=== PATIENT | male | born 1970 | race African-American/Black ===

== ENCOUNTER 2016-06-08 10:11 | Inpatient (IN) | payer OTHER ==
[2016-06-08 10:47] VITALS: BMI 19.5
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
[2016-06-08] MEDS ORDERED: P-EPHED 60MG/TRIPROLIDI 2.5MG TABLET PO PRN (13:51)
[2016-06-08] MEDS ORDERED: IBUPROFEN 400 MG TABLET (FP) PO PRN (13:51)
[2016-06-08] MEDS ORDERED: ACETAMINOPHEN 325 MG TABLET (FP) PO PRN (13:51)
[2016-06-08] MEDS ORDERED: guaiFENesin/D-METHORPHAN HB 10 ML UNIT-DOSE CUPS PO PRN (13:51)
[2016-06-08] MEDS ORDERED: diphenhydrAMINE HCL 50 MG CAPSULE PO PRN (13:51)
[2016-06-08] MEDS ORDERED: LOPERAMIDE HCL 2 MG CAPSULE PO PRN (13:51)
[2016-06-08] MEDS ORDERED: MAGNESIUM CITRATE 300 ML BOTTLE PO PRN (13:51)
[2016-06-08] MEDS ORDERED: MAGNESIUM HYDROX 2400MG/30ML ORAL SUSPENSION 30 ML CUP PO PRN (13:51)
[2016-06-08] MEDS ORDERED: MENTHOL/PHENOL 1 EACH UD MM PRN (13:51)
[2016-06-08] MEDS ORDERED: MAG HYDROX/AL HYDROX/SIMETH 30 ML UNIT-DOSE CUP PO PRN (13:51)
--- NOTE | 2016-06-08 14:39 | HP ---
Psychiatrist Admission - Data Date of interview: 06/08/16 Admission source: [facility] Identifying data: This the third [facility] admission for this 45 years old single Black male, father of 5 children, unemployed on public assistance, living in a room Medical History: Significant for Bronchitis, PPD+ and surgery for fracture left mandible in 2004. Smokes 2 cigarettes daily Psychiatric History: Denies history of previous psychiatric treatment Physical/Sexual Abuse/Trauma History: Denies history of emotional, physical or sexual abuse as well as DV relationship Additional Comment: Reports history of multiple misdemeanor arrests. Denies being on probation at present Vital Signs: Vital Signs - 24 hr 06/08/16 10:39 Temperature 97.8 F Pulse Rate 92 H Respiratory 20 Rate Blood Pressure 117/84 Allergies/Adverse Reactions: Allergies Allergy/AdvReac Type Severity Reaction Status Date / Time No Known Allergies Allergy Verified 06/08/16 11:04 Date of last physical exam: 06/08/16 Concur with the findings of this exam: Yes - Substance Abuse/Tx History Hx Alcohol Use: Yes Hx Substance Use: Yes Substance Use Type: Alcohol (Started drinking alcohol at age 12, consumes half a pint daily. Last drink on 06/08/16), Marijuana (Started smoking marijuana at age 12, consumes one bag daily. Last smoked on 06/08/16) Hx Substance Use Treatment: Yes (2 previous inpt rehab @ [facility] in) - Admission Criteria Previous failed treatment: No Poor recovery environment: Yes Comorbidities: Yes Lacks judgement: Yes Mental Status Exam - Mental Status Exam Alert and Oriented to: Time, Place, Person Cognitive Function: Fair, Good Patient Appearance: Disheveled Mood: Hopeful, Euthymic Affect: Appropriate Patient Behavior: Cooperative Speech Pattern: Clear Voice Loudness: Normal Thought Process: Intact Thought Disorder: Not Present Hallucinations: Denies Suicidal Ideation: Denies Homicidal Ideation: Denies Insight/Judgement: Fair Sleep: Well Appetite: Good Muscle strength/Tone: Normal Gait/Station: Normal Psychiatric Findings - Problem List ([place] 1, 2,3) (1) Alcohol dependence with uncomplicated withdrawal Current Visit: Yes Status: Chronic (2) Cannabis dependence, uncomplicated Current Visit: Yes Status: Chronic (3) Nicotine dependence Current Visit: Yes Status: Acute (4) Finger fracture, right Current Visit: Yes Status: Acute Comment: CAST IN PLACE ON RIGHT FOREARM (5) PPD positive Current Visit: Yes Status: Acute - Initial Treatment Plan Initial Treatment Plan: Monitor progress
[2016-06-08 18:02] LABS: MCH 33.6 pg (25.7-33.7); MCHC 34.5 g/dl (32.0-35.9); MEAN CELL VOLUME 97.3 fl (80-96); PLATELET COUNT 72 K/MM3 (134-434); RDW 12.8 % (11.9-15.9); WHITE BLOOD COUNT 4.4 K/mm3 (4.0-10.0)
[2016-06-08 18:16] LABS: ALBUMIN 4.5 g/dl (3.4-5.0); ANION GAP 8 (8-16); CALCIUM 8.7 mg/dL (8.5-10.1); CO2 28 mmol/L (21-32); COCKROFT - GAULT 68.9; GLUCOSE,RANDOM 91 mg/dL (74-106); SGOT/AST 44 U/L (15-37); SGPT/ALT 67 U/L (12-78)
[2016-06-08 18:17] LABS: ALK PHOS 80 U/L (45-117); BILIRUBIN,TOTAL 2.8 mg/dL (0.2-1.0); TOT PROT 7.6 g/dl (6.4-8.2)
[2016-06-08 19:43] LABS: PLATELET ESTIMATE MOD DECREASED (NORMAL)
[2016-06-08 22:08] LABS: URINE APPEARANCE SLCLOUDY; URINE BILIRUBIN NEGATIVE (NEGATIVE); URINE BLOOD NEGATIVE (NEGATIVE); URINE COLOR YELLOW; URINE GLUCOSE (UA) NEGATIVE (NEGATIVE); URINE KETONE NEGATIVE (NEGATIVE); URINE LEUK ESTERASE NEGATIVE (NEGATIVE); URINE NITRITE NEGATIVE (NEGATIVE); URINE PROTEIN NEGATIVE (NEGATIVE); URINE UROBILINOGEN 4.0 E.U/dl E.U./dl (0.2-1.0)
[2016-06-08] MEDS: THIAMINE HCL 100 MG TABLET (FP) PO SCH (23:27)
[2016-06-09] MEDS: PRENATAL VITAMINS W/ FOLIC ACID TABLET (FP) PO SCH (10:03)
--- NOTE | 2016-06-09 13:23 | EKG ---
Test Reason : Blood Pressure : / mmHG Vent. Rate : 090 BPM Atrial Rate : 090 BPM P-R Int : 174 ms QRS Dur : 088 ms QT Int : 350 ms P-R-T Axes : 081 076 071 degrees QTc Int : 428 ms NORMAL SINUS RHYTHM WITH SINUS ARRHYTHMIA NORMAL ECG NO PREVIOUS ECGS AVAILABLE Confirmed by JESUS AMAYA, PATRICK ([id number]) on 06/09/2016 1:22:33 PM Referred By: Jia Morejon Confirmed By:PATRICK LEE MD
[2016-06-09] MEDS: THIAMINE HCL 100 MG TABLET (FP) PO SCH (23:27)
[2016-06-10] MEDS: POTASSIUM CHLORIDE TABS 20 MEQ TABLET.ER (FP) PO SCH (10:15)
[2016-06-10] MEDS: PRENATAL VITAMINS W/ FOLIC ACID TABLET (FP) PO SCH (10:15)
[2016-06-10 10:42] LABS: CALCIUM 9.1 mg/dL (8.5-10.1); COCKROFT - GAULT 62.6; CREATININE 1.1 mg/dL (0.7-1.3)
[2016-06-10] MEDS: THIAMINE HCL 100 MG TABLET (FP) PO SCH (23:07)
[2016-06-11] MEDS: PRENATAL VITAMINS W/ FOLIC ACID TABLET (FP) PO SCH (10:29)
[2016-06-11] MEDS: POTASSIUM CHLORIDE TABS 20 MEQ TABLET.ER (FP) PO SCH (10:29)
[2016-06-11] MEDS: THIAMINE HCL 100 MG TABLET (FP) PO SCH (23:47)
[2016-06-12] MEDS: PRENATAL VITAMINS W/ FOLIC ACID TABLET (FP) PO SCH (10:41)
[2016-06-12] MEDS: POTASSIUM CHLORIDE TABS 20 MEQ TABLET.ER (FP) PO SCH (10:41)
[2016-06-12] MEDS: NICOTINE POLACRILEX 2 MG GUM BUC PRN (10:53)
[2016-06-12] MEDS: THIAMINE HCL 100 MG TABLET (FP) PO SCH (22:54)
[2016-06-13] MEDS: POTASSIUM CHLORIDE TABS 20 MEQ TABLET.ER (FP) PO SCH (10:45)
[2016-06-13] MEDS: PRENATAL VITAMINS W/ FOLIC ACID TABLET (FP) PO SCH (10:48)
[2016-06-13] MEDS: THIAMINE HCL 100 MG TABLET (FP) PO SCH (23:08)
[2016-06-14] MEDS: PRENATAL VITAMINS W/ FOLIC ACID TABLET (FP) PO SCH (10:35)
[2016-06-14] MEDS: POTASSIUM CHLORIDE TABS 20 MEQ TABLET.ER (FP) PO SCH (10:35)
[2016-06-14] MEDS: THIAMINE HCL 100 MG TABLET (FP) PO SCH (22:26)
[2016-06-15] MEDS: POTASSIUM CHLORIDE TABS 20 MEQ TABLET.ER (FP) PO SCH (10:39)
[2016-06-15] MEDS: PRENATAL VITAMINS W/ FOLIC ACID TABLET (FP) PO SCH (10:39)
[2016-06-15] MEDS: NICOTINE POLACRILEX 2 MG GUM BUC PRN (10:49)
[2016-06-15] MEDS ORDERED: PT OWN MED DRAWER 7, Y5N ONE (15:21)
[2016-06-15] MEDS: THIAMINE HCL 100 MG TABLET (FP) PO SCH (23:50)
[2016-06-16] MEDS: PRENATAL VITAMINS W/ FOLIC ACID TABLET (FP) PO SCH (10:13)
[2016-06-16] MEDS: POTASSIUM CHLORIDE TABS 20 MEQ TABLET.ER (FP) PO SCH (10:13)
[2016-06-16] MEDS: NICOTINE POLACRILEX 2 MG GUM BUC PRN (11:00)
[2016-06-16] MEDS: THIAMINE HCL 100 MG TABLET (FP) PO SCH (22:00)
[2016-06-17] MEDS: PRENATAL VITAMINS W/ FOLIC ACID TABLET (FP) PO SCH (10:20)
[2016-06-17] MEDS: POTASSIUM CHLORIDE TABS 20 MEQ TABLET.ER (FP) PO SCH (10:20)
[2016-06-17] MEDS: THIAMINE HCL 100 MG TABLET (FP) PO SCH (22:07)
[2016-06-18] MEDS: PRENATAL VITAMINS W/ FOLIC ACID TABLET (FP) PO SCH (11:00)
[2016-06-18] MEDS: POTASSIUM CHLORIDE TABS 20 MEQ TABLET.ER (FP) PO SCH (11:00)
[2016-06-18] MEDS: NICOTINE POLACRILEX 2 MG GUM BUC PRN (21:43)
[2016-06-18] MEDS: THIAMINE HCL 100 MG TABLET (FP) PO SCH (23:47)
[2016-06-19] MEDS: POTASSIUM CHLORIDE TABS 20 MEQ TABLET.ER (FP) PO SCH (10:37)
[2016-06-19] MEDS: PRENATAL VITAMINS W/ FOLIC ACID TABLET (FP) PO SCH (10:37)
[2016-06-19] MEDS: NICOTINE POLACRILEX 2 MG GUM BUC PRN (13:10)
[2016-06-19] MEDS: THIAMINE HCL 100 MG TABLET (FP) PO SCH (22:43)
[2016-06-20] MEDS: PRENATAL VITAMINS W/ FOLIC ACID TABLET (FP) PO SCH (10:37)
[2016-06-20] MEDS: POTASSIUM CHLORIDE TABS 20 MEQ TABLET.ER (FP) PO SCH (10:37)
[2016-06-20] MEDS: THIAMINE HCL 100 MG TABLET (FP) PO SCH (22:12)
[2016-06-21] MEDS: PRENATAL VITAMINS W/ FOLIC ACID TABLET (FP) PO SCH (10:25)
[2016-06-21] MEDS: POTASSIUM CHLORIDE TABS 20 MEQ TABLET.ER (FP) PO SCH (10:25)
[2016-06-21] MEDS: NICOTINE POLACRILEX 2 MG GUM BUC PRN (13:59)
[2016-06-21] MEDS: THIAMINE HCL 100 MG TABLET (FP) PO SCH (23:37)
[2016-06-22 06:56] VITALS: BP 98/70; PULSE 74; TEMP 98.4
--- NOTE | 2016-06-22 09:00 | PN ---
Psychiatric Progress Note Vital Signs: Vital Signs Period Temp Pulse Resp BP Sys/Lopez Pulse Ox Last 24 Hr 98.4 F 74 18-18 98/70 Date of Session: 06/22/16 Chief Complaint:: Discharge Note HPI: Patient addressing Alcohol and Cannabis Dependence comorbid with Nicotine Dependence ROS: PPD+ Current Medications: Active Medications Generic Name Dose Route Start Last Admin Trade Name Freq PRN Reason Stop Dose Admin Acetaminophen 650 mg 06/08/16 13:51 06/13/16 11:58 Tylenol - PO 650 mg Q4H PRN Administration FEVER OR PAIN Al Hydroxide/Mg Hydroxide 30 ml 06/08/16 13:51 Mylanta Oral Suspension - PO Q6H PRN DYSPEPSIA Diphenhydramine HCl 50 mg 06/08/16 13:51 Benadryl - PO HSMR1 PRN FOR ITCHING Eucalyptus/Menthol/Phenol/Sorbitol 1 each 06/08/16 13:51 Cepastat Lozenge - MM Q4H PRN SORE THROAT Guaifenesin 10 ml 06/08/16 13:51 Robitussin Dm - PO Q6H PRN COUGH Ibuprofen 400 mg 06/08/16 13:51 06/21/16 11:12 Motrin - PO 400 mg Q6H PRN Administration PAIN Loperamide HCl 4 mg 06/08/16 13:51 Imodium - PO Q6H PRN DIARRHEA Magnesium Hydroxide 30 ml 06/08/16 13:51 Milk Of Magnesia - PO DAILY PRN CONSTIPATION Nicotine Polacrilex 2 mg 06/12/16 09:57 06/21/16 13:59 Nicorette Gum - BUC 2 mg Q2H PRN Administration NICOTINE REPLACEMENT RX Potassium Chloride 40 meq 06/10/16 10:00 06/21/16 10:25 K-Dur - PO 40 meq DAILY CRISTHIAN Administration Multivit/Folic Acid/Iron 1 tab 06/09/16 10:00 06/21/16 10:25 Vitamins (Sjr) - PO 1 tab DAILY CRISTHIAN Administration Pseudoephedrine/Triprolidine 1 combo 06/08/16 13:51 Actifed - PO TID PRN NASAL CONGESTION Thiamine HCl 100 mg 06/08/16 22:00 06/21/16 23:37 Vitamin B1 - PO Not Given HS [facility] Current Side Effect: No Lab tests ordered: Yes Lab tests reviewed: Yes Provider note:: Patient has completed this program today. He has met his treatment goals and will continue to address his issues in outpatient treatment at [facility]. He verbalized undrestanding of the negative consequences of his addiction and the need to make changes in his life style in order to maintain sobriety. He is stable for discharge today Total face to face time:: 35 Mental Status Exam - Mental Status Exam Alert and Oriented to: Time, Place, Person Cognitive Function: Fair Patient Appearance: Disheveled Mood: Hopeful, Euthymic Affect: Appropriate Patient Behavior: Cooperative Speech Pattern: Clear Voice Loudness: Normal Thought Process: Intact, Goal Oriented Thought Disorder: Not Present Hallucinations: Denies Suicidal Ideation: Denies Homicidal Ideation: Denies Insight/Judgement: Fair Sleep: Fair Appetite: Good Muscle strength/Tone: Normal Gait/Station: Normal Psychiatric Treatment Plan - Problem List (1) Alcohol dependence with uncomplicated withdrawal Current Visit: Yes (2) Cannabis dependence, uncomplicated Current Visit: Yes (3) Nicotine dependence Current Visit: Yes (4) Finger fracture, right Current Visit: Yes Comment: CAST IN PLACE ON RIGHT FOREARM (5) PPD positive Current Visit: Yes Initial treatment plan: Patient is discharged today and referred to [facility] for outpatient treatment
--- NOTE | 2016-06-22 09:47 | PN ---
[facility] Progress Note Note: ADDENDUM K IS 4.4 LAST REPEAT WILL D/C K DUR
[2016-06-22] MEDS: PRENATAL VITAMINS W/ FOLIC ACID TABLET (FP) PO SCH (10:42)
== END 2016-06-22 10:36 | disposition home or self-care (01) | DRG 772 ==
LOC: YASAS 10:11 → Y3W 11:26
PROVIDERS: ADMIT Psychiatry & Neurology Psychiatry; ATTEND Psychiatry & Neurology Psychiatry
PROC: HZ42ZZZ Group Counseling for Substance Abuse Treatment, Cognitive-Behavioral (ICD-10-PCS; principal; 2016-06-22)
DX: F10.230 Alcohol dependence with withdrawal, uncomplicated (principal); F14.20 Cocaine dependence, uncomplicated; F12.20 Cannabis dependence, uncomplicated; Z87.81 Personal history of (healed) traumatic fracture
CPT/HCPCS: 36415; 71020-TC; 80048; 80053; 81003; 85027; 86593; 93005; 93010

== ENCOUNTER 2016-11-19 10:55 | Inpatient (IN) | payer OTHER ==
[2016-11-19 13:14] VITALS: BMI 21.3
--- NOTE | 2016-11-19 16:21 | HP ---
CIWA Score - CIWA Score Nausea/Vomitin-Mild Nausea/No Vomiting Muscle Tremors: 4-Moderate,w/Arms Extend Anxiety: 4-Mod. Anxious/Guarded Agitation: 4-Moderately Restless Paroxysmal Sweats: 1-Minimal Palms Moist Orientation: 0-Oriented Tacttile Disturbances: 0-None Auditory Disturbances: 0-None Visual Disturbances: 0-None Headache: 1-Very Mild CIWA-Ar Total Score: 15 Admission ROS BHS - HPI Chief Complaint: withdrawal sx Allergies/Adverse Reactions: Allergies Allergy/AdvReac Type Severity Reaction Status Date / Time No Known Allergies Allergy Verified 11/19/16 15:48 History of Present Illness: 46 years old male with long history of alcohol cocaine marijuana nicotine dependence has positive ppd, weight loss, denies mental illness is admitted to detox Exam Limitations: No Limitations - Ebola screening Have you traveled outside of the country in the last 21 days: No Have you had contact with anyone from an Ebola affected area: No Have you been sick,other than usual withdrawal symptoms: No Do you have a fever: No - Review of Systems Constitutional: Loss of Appetite, Changes in sleep, Unintentional Wgt. 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) Integumentary: reports: Change in Color (multiple hypopigmentation on hands and legs) Neuro: reports: Tremors Endocrine: reports: No Symptoms Reported Hematology: reports: No Symptoms Reported Psychiatric: reports: Judgement Intact, Mood/Affect Appropiate, Orientated x3 Other Systems: Reviewed and Negative Patient History - Patient Medical History Hx Anemia: No Hx Asthma: No Hx Chronic Obstructive Pulmonary Disease (COPD): No Hx Cancer: No Hx Cardiac Disorders: No Hx Congestive Heart Failure: No Hx Hypertension: No Hx Hypercholesterolemia: No Hx Pacemaker: No HX Cerebrovascular Accident: No Hx Seizures: No Hx Dementia: No Hx Diabetes: No Hx Gastrointestinal Disorders: No Hx Liver Disease: No (Need labs to determine if Hep C infection exists) Hx Genitourinary Disorders: No Hx Sexually Transmitted Disorders: No Hx Renal Disease (ESRD): No Hx Thyroid Disease: No Hx Human Immunodeficiency Virus (HIV): No (NEGATIVE HX) Hx Hepatitis C: No Hx Depression: No Hx Suicide Attempt: No Hx Bipolar Disorder: No Hx Schizophrenia: No - Patient Surgical History Past Surgical History: Yes Hx Neurologic Surgery: No Hx Cataract Extraction: No Hx Cardiac Surgery: No Hx Lung Surgery: No Hx Breast Surgery: No Hx Breast Biopsy: No Hx Abdominal Surgery: No Hx Appendectomy: No Hx Cholecystectomy: No Hx Genitourinary Surgery: No Hx Orthopedic Surgery: Yes (right 4th finger distal amputee) Other Surgical History: LT MANDIBLE FX--PLATE IN PLACE 2014 Anesthesia Reaction: No - PPD History Previous Implant?: Yes Documented Results: Positive w/o proof Implanted On Prior R Admission?: No Results: CXR(-)06/09/2016 PPD to be Administered?: No - Smoking Cessation Smoking history: Current every day smoker Have you smoked in the past 12 months: Yes Aproximately how many cigarettes per day: 2 Cigars Per Day: 0 Hx Chewing Tobacco Use: No Initiated information on smoking cessation: Yes 'Breaking Loose' booklet given: 11/19/16 - Substance & Tx. History Hx Alcohol Use: Yes Hx Substance Use: Yes Substance Use Type: Alcohol, Cocaine, Marijuana Hx Substance Use Treatment: Yes (06/08-06/22/16 [facility] - Substances Abused Alcohol-vodka/beer Route: Oral Frequency: Daily Amount used: 1 pt volka./1-6 pk.18oz Age of first use: 14 Date of Last Use: 11/18/16 Marijuana Route: Smoking Frequency: Daily Amount used: $20 Age of first use: 14 Date of Last Use: 11/18/16 Family Disease History - Family Disease History Family Disease History: Diabetes: Father (), Other: Mother (SEIZURES/ ALCOHOLISM-), Sister (alcoholic) Admission Physical Exam BHS - Vital Signs Vital Signs: Vital Signs - 24 hr 11/19/16 13:04 Temperature 96.2 F L Pulse Rate 66 Respiratory 16 Rate Blood Pressure 126/79 - Physical General Appearance: Yes: Appropriately Dressed, Mild Distress, Thin, Tremorous, Irritable, Sweating, Anxious HEENTM: Yes: Hearing grossly Normal, Normal ENT Inspection, Normocephalic, Normal Voice Respiratory: Yes: Chest Non-Tender, Lungs Clear, Normal Breath Sounds, No Respiratory Distress, No Accessory Muscle Use Neck: Yes: Supple, Trachea in good position Breast: Yes: Within Normal Limits, Breasts Symetrical, No Discharge Cardiology: Yes: Regular Rhythm, Regular Rate, S1, S2 Abdominal: Yes: Normal Bowel Sounds, Non Tender, Soft Genitourinary: Yes: Within Normal Limits Back: Yes: Normal Inspection Musculoskeletal: Yes: full range of Motion, Gait Steady Extremities: Yes: Normal Range of Motion, Non-Tender, Tremors, Other (hands + legs hypopigmentation spots right 4th distal finger amputee) Neurological: Yes: Fully Oriented, Alert, Motor Strength 5/5, Normal Mood/Affect , Normal Response Integumentary: Yes: Warm, Other (multiple hypopigmentation on hands and legs) Lymphatic: Yes: Within Normal Limits - Diagnostic (1) Nicotine dependence Current Visit: Yes Status: Acute Qualifiers: Nicotine product type: cigarettes Substance use status: in withdrawal Qualified Code(s): F17.213 - Nicotine dependence, cigarettes, with withdrawal; F17.213 - Nicotine dependence, cigarettes, with withdrawal (2) PPD positive Current Visit: Yes Status: Resolved (3) Alcohol dependence with uncomplicated withdrawal Current Visit: Yes Status: Acute (4) Cannabis dependence, uncomplicated Current Visit: Yes Status: Chronic (5) Cocaine dependence, uncomplicated Current Visit: Yes Status: Chronic Cleared for Admission [facility] - Detox or Rehab [facility] Level of Care: Medically Managed Detox Regimen/Protocol: Librium [facility] Breath Alcohol Content Breath Alcohol Content: 0 Urine Drug Screen - Results Drug Screen Negative: No Urine Drug Screen Results: THC-Marijuana, CRUZ-Cocaine
[2016-11-19] MEDS ORDERED: MAG HYDROX/AL HYDROX/SIMETH 30 ML UNIT-DOSE CUP PO PRN (16:24)
[2016-11-19] MEDS ORDERED: guaiFENesin/D-METHORPHAN HB 10 ML UNIT-DOSE CUPS PO PRN (16:24)
[2016-11-19] MEDS ORDERED: chlordiazePOXIDE HCL 25 MG CAPSULE PO PRN (16:24)
[2016-11-19] MEDS ORDERED: P-EPHED 60MG/TRIPROLIDI 2.5MG TABLET PO PRN (16:24)
[2016-11-19] MEDS ORDERED: ACETAMINOPHEN 325 MG TABLET (FP) PO PRN (16:24)
[2016-11-19] MEDS ORDERED: LOPERAMIDE HCL 2 MG CAPSULE PO PRN (16:24)
[2016-11-19] MEDS ORDERED: IBUPROFEN 400 MG TABLET (FP) PO PRN (16:24)
[2016-11-19] MEDS ORDERED: MAGNESIUM HYDROX 2400MG/30ML ORAL SUSPENSION 30 ML CUP PO PRN (16:24)
[2016-11-19] MEDS ORDERED: MENTHOL/PHENOL 1 EACH UD MM PRN (16:24)
[2016-11-19] MEDS ORDERED: MAGNESIUM CITRATE 300 ML BOTTLE PO PRN (16:24)
[2016-11-19 20:29] LABS: URINE APPEARANCE SLCLOUDY; URINE BILIRUBIN NEGATIVE (NEGATIVE); URINE BLOOD NEGATIVE (NEGATIVE); URINE COLOR AMBER; URINE GLUCOSE (UA) NEGATIVE (NEGATIVE); URINE KETONE NEGATIVE (NEGATIVE); URINE NITRITE NEGATIVE (NEGATIVE); URINE PROTEIN NEGATIVE (NEGATIVE); URINE UROBILINOGEN 4.0 E.U/dl mg/dL (0.2-1.0)
[2016-11-19 21:46] LABS: URINE LEUK ESTERASE Negative (NEGATIVE)
[2016-11-19] MEDS: THIAMINE HCL 100 MG TABLET (FP) PO SCH (22:09)
[2016-11-19] MEDS: chlordiazePOXIDE HCL 25 MG CAPSULE PO SCH (22:09)
[2016-11-20] MEDS: chlordiazePOXIDE HCL 25 MG CAPSULE PO SCH ×4 (05:49→22:18)
[2016-11-20] MEDS: PRENATAL VITAMINS W/ FOLIC ACID TABLET (FP) PO SCH (10:18)
[2016-11-20] MEDS: NICOTINE 14 MG/24 HOURS TOPICAL PATCH TD SCH (10:19)
[2016-11-20] MEDS: NICOTINE POLACRILEX 2 MG GUM BC PRN ×2 (10:21→18:24)
[2016-11-20 11:05] LABS: MCH 33.2 pg (25.7-33.7); MCHC 33.5 g/dl (32.0-35.9); MEAN CELL VOLUME 99.1 fl (80-96); MEAN PLT VOLUME 10.4 fl (7.5-11.1); PLATELET COUNT 65 K/MM3 (134-434); RDW 12.9 % (11.9-15.9); WHITE BLOOD COUNT 2.3 K/mm3 (4.0-10.0)
[2016-11-20 11:18] LABS: ALBUMIN 3.9 g/dl (3.4-5.0); ALK PHOS 82 U/L (45-117); ANION GAP 7 (8-16); BILIRUBIN,TOTAL 2.1 mg/dL (0.2-1.0); CALCIUM 8.2 mg/dL (8.5-10.1); CO2 29 mmol/L (21-32); CREATININE 0.8 mg/dL (0.7-1.3); GLUCOSE,RANDOM 70 mg/dL (74-106); SGOT/AST 53 U/L (15-37); SGPT/ALT 58 U/L (12-78)
[2016-11-20] MEDS ORDERED: FLU VACCINE QUAD 60 MCG/0.5 ML (MDV 17-18) IM ONE ×4 (12:00→15:30)
--- NOTE | 2016-11-20 12:53 | EKG ---
Test Reason : Blood Pressure : / mmHG Vent. Rate : 070 BPM Atrial Rate : 070 BPM P-R Int : 178 ms QRS Dur : 088 ms QT Int : 376 ms P-R-T Axes : 070 080 074 degrees QTc Int : 406 ms NORMAL SINUS RHYTHM MODERATE VOLTAGE CRITERIA FOR LVH, MAY BE NORMAL VARIANT WHEN COMPARED WITH ECG OF 08-JUN-2016 14:30, NO SIGNIFICANT CHANGE WAS FOUND Confirmed by EYAD HAMMOND MD ([id number]) on 11/20/2016 12:52:58 PM Referred By: Confirmed By:EYAD HAMMOND MD
--- NOTE | 2016-11-20 16:57 | PN ---
S CIWA - CIWA Score Nausea/Vomitin Muscle Tremors: 3 Anxiety: 4-Mod. Anxious/Guarded Agitation: 3 Paroxysmal Sweats: No Perspiration Orientation: 0-Oriented Tacttile Disturbances: 2-Mild Itch/Numbness/Burn Auditory Disturbances: 1-Very Mild Visual Disturbances: 3-Moderate Sensitivity Headache: 0-None Present CIWA-Ar Total Score: 19 BHS Progress Note (SOAP) Subjective: Nausea, Tremors, Diarrhea. Objective: PT. A & O X 3, OBSERVED AMBULATING ON UNIT. NO ACUTE DISTRESS. 11/20/16 16:54 Vital Signs Temperature 98.7 F 11/20/16 13:56 Pulse Rate 77 11/20/16 13:56 Respiratory Rate 16 11/20/16 13:56 Blood Pressure 112/58 11/20/16 13:56 O2 Sat by Pulse Oximetry (%) Laboratory Tests 11/19/16 11/20/16 11/20/16 19:00 08:00 08:00 WBC 2.3 L D RBC 4.60 Hgb 15.3 Hct 45.6 MCV 99.1 H MCH 33.2 MCHC 33.5 RDW 12.9 Plt Count 65 L MPV 10.4 Sodium 141 Potassium 4.1 Chloride 105 Carbon Dioxide 29 Anion Gap 7 L BUN 10 D Creatinine 0.8 D Creat Clearance w eGFR > 60 Random Glucose 70 L Calcium 8.2 L Total Bilirubin 2.1 H D AST 53 H D ALT 58 Alkaline Phosphatase 82 Total Protein 7.0 Albumin 3.9 Urine Color Sasha Urine Appearance Slcloudy Urine pH 6.0 Ur Specific Meta 1.020 Urine Protein Negative Urine Glucose (UA) Negative Urine Ketones Negative Urine Blood Negative Urine Nitrite Negative Urine Bilirubin Negative Urine Urobilinogen 4.0 e.u/dl Ur Leukocyte Esterase Negative RPR Titer 11/20/16 08:00 WBC RBC Hgb Hct MCV MCH MCHC RDW Plt Count MPV Sodium Potassium Chloride Carbon Dioxide Anion Gap BUN Creatinine Creat Clearance w eGFR Random Glucose Calcium Total Bilirubin AST ALT Alkaline Phosphatase Total Protein Albumin Urine Color Urine Appearance Urine pH Ur Specific Meta Urine Protein Urine Glucose (UA) Urine Ketones Urine Blood Urine Nitrite Urine Bilirubin Urine Urobilinogen Ur Leukocyte Esterase RPR Titer Nonreactive LABS NOTED. PT. HAS HAD LOW WBC AND PLATELET LEVELS WHEN CHECKED PREVIOUSLY. 11/20/16 16:56 Assessment: 11/20/16 16:54 WITHDRAWAL SYMPTOMS. Plan: CONTINUE DETOX. REPEAT CBC ON . INCREASE DAILY PO FLUID INTAKE.
[2016-11-20] MEDS: THIAMINE HCL 100 MG TABLET (FP) PO SCH (22:17)
[2016-11-20] MEDS: diphenhydrAMINE HCL 50 MG CAPSULE PO PRN (22:18)
[2016-11-21] MEDS: chlordiazePOXIDE HCL 25 MG CAPSULE PO SCH ×3 (05:27→17:36)
[2016-11-21] MEDS: NICOTINE 14 MG/24 HOURS TOPICAL PATCH TD SCH (10:08)
[2016-11-21] MEDS: PRENATAL VITAMINS W/ FOLIC ACID TABLET (FP) PO SCH (10:08)
[2016-11-21] MEDS: NICOTINE POLACRILEX 2 MG GUM BC PRN (10:09)
--- NOTE | 2016-11-21 13:24 | PN ---
[facility] CIWA - CIWA Score Nausea/Vomitin-No Nausea/No Vomiting Muscle Tremors: 4-Moderate,w/Arms Extend Anxiety: 4-Mod. Anxious/Guarded Agitation: 4-Moderately Restless Paroxysmal Sweats: 1-Minimal Palms Moist Orientation: 0-Oriented Tacttile Disturbances: 3-Moderate Itch/Numb/Burn Auditory Disturbances: 0-None Visual Disturbances: 0-None Headache: 0-None Present CIWA-Ar Total Score: 16 S Progress Note (SOAP) Subjective: ANXIETY,SWEATS,TREMORS,FATIGUE. Objective: 11/21/16 13:24 Vital Signs Temperature 98.4 F 11/21/16 10:04 Pulse Rate 88 11/21/16 10:04 Respiratory Rate 20 11/21/16 10:04 Blood Pressure 110/78 11/21/16 10:04 O2 Sat by Pulse Oximetry (%) Laboratory Last Values WBC 2.3 K/mm3 (4.0-10.0) L D 11/20/16 08:00 RBC 4.60 M/mm3 (4.00-5.60) 11/20/16 08:00 Hgb 15.3 GM/dL (11.7-16.9) 11/20/16 08:00 Hct 45.6 % (35.4-49) 11/20/16 08:00 MCV 99.1 fl (80-96) H 11/20/16 08:00 MCH 33.2 pg (25.7-33.7) 11/20/16 08:00 MCHC 33.5 g/dl (32.0-35.9) 11/20/16 08:00 RDW 12.9 % (11.9-15.9) 11/20/16 08:00 Plt Count 65 K/MM3 (134-434) L 11/20/16 08:00 MPV 10.4 fl (7.5-11.1) 11/20/16 08:00 Sodium 141 mmol/L (136-145) 11/20/16 08:00 Potassium 4.1 mmol/L (3.5-5.1) 11/20/16 08:00 Chloride 105 mmol/L (98-107) 11/20/16 08:00 Carbon Dioxide 29 mmol/L (21-32) 11/20/16 08:00 Anion Gap 7 (8-16) L 11/20/16 08:00 BUN 10 mg/dL (7-18) D 11/20/16 08:00 Creatinine 0.8 mg/dL (0.7-1.3) D 11/20/16 08:00 Creat Clearance w eGFR > 60 (>60) 11/20/16 08:00 Random Glucose 70 mg/dL (74-106) L 11/20/16 08:00 Calcium 8.2 mg/dL (8.5-10.1) L 11/20/16 08:00 Total Bilirubin 2.1 mg/dL (0.2-1.0) H D 11/20/16 08:00 AST 53 U/L (15-37) H D 11/20/16 08:00 ALT 58 U/L (12-78) 11/20/16 08:00 Alkaline Phosphatase 82 U/L (45-117) 11/20/16 08:00 Total Protein 7.0 g/dl (6.4-8.2) 11/20/16 08:00 Albumin 3.9 g/dl (3.4-5.0) 11/20/16 08:00 Urine Color Sasha 11/19/16 19:00 Urine Appearance Slcloudy 11/19/16 19:00 Urine pH 6.0 (5.0-8.0) 11/19/16 19:00 Ur Specific [place] 1.020 (1.005-1.025) 11/19/16 19:00 Urine Protein Negative (NEGATIVE) 11/19/16 19:00 Urine Glucose (UA) Negative (NEGATIVE) 11/19/16 19:00 Urine Ketones Negative (NEGATIVE) 11/19/16 19:00 Urine Blood Negative (NEGATIVE) 11/19/16 19:00 Urine Nitrite Negative (NEGATIVE) 11/19/16 19:00 Urine Bilirubin Negative (NEGATIVE) 11/19/16 19:00 Urine Urobilinogen 4.0 e.u/dl mg/dL (0.2-1.0) 11/19/16 19:00 Ur Leukocyte Esterase Negative (NEGATIVE) 11/19/16 19:00 RPR Titer Nonreactive (NONREACTIVE) 11/20/16 08:00 Assessment: 11/21/16 13:24 WITHDRAWAL SX Plan: CONTINUE DETOX
[2016-11-21] MEDS: diphenhydrAMINE HCL 50 MG CAPSULE PO PRN (22:16)
[2016-11-21] MEDS: THIAMINE HCL 100 MG TABLET (FP) PO SCH (22:16)
[2016-11-21] MEDS: chlordiazePOXIDE 5 MG CAPSULE PO SCH (22:16)
[2016-11-22] MEDS: chlordiazePOXIDE 5 MG CAPSULE PO SCH ×3 (05:11→17:13)
[2016-11-22 09:44] LABS: MCH 33.4 pg (25.7-33.7); MCHC 33.6 g/dl (32.0-35.9); MEAN CELL VOLUME 99.6 fl (80-96); MEAN PLT VOLUME 10.5 fl (7.5-11.1); PLATELET COUNT 58 K/MM3 (134-434); RDW 12.7 % (11.9-15.9)
[2016-11-22 09:55] LABS: SGOT/AST 63 U/L (15-37); SGPT/ALT 85 U/L (12-78); TOT PROT 6.4 g/dl (6.4-8.2)
[2016-11-22 10:00] LABS: ALBUMIN 3.6 g/dl (3.4-5.0); ALK PHOS 75 U/L (45-117); ANION GAP 6 (8-16); CALCIUM 8.6 mg/dL (8.5-10.1); CO2 25 mmol/L (21-32); CREATININE 0.8 mg/dL (0.7-1.3); GLUCOSE,RANDOM 95 mg/dL (74-106)
[2016-11-22 10:02] LABS: PROTHROMBIN TIME (PATIENT) 11.3 SEC (9.98-11.88)
[2016-11-22] MEDS: PRENATAL VITAMINS W/ FOLIC ACID TABLET (FP) PO SCH (10:18)
[2016-11-22] MEDS: NICOTINE 14 MG/24 HOURS TOPICAL PATCH TD SCH (10:19)
[2016-11-22] MEDS: NICOTINE POLACRILEX 2 MG GUM BC PRN (10:21)
--- NOTE | 2016-11-22 10:54 | PN ---
B[facility] Progress Note (SOAP) Subjective: SLIGHT ANXIETY,SWEATS. ALERT O X 3. NAD. Objective: 11/22/16 10:53 Vital Signs Temperature 97.3 F L 11/22/16 09:54 Pulse Rate 78 11/22/16 09:54 Respiratory Rate 18 10 09:54 Blood Pressure 107/81 11/22/16 09:54 O2 Sat by Pulse Oximetry (%) Laboratory Last Values WBC 2.0 K/mm3 (4.0-10.0) L 11/22/16 07:00 RBC 4.37 M/mm3 (4.00-5.60) 11/22/16 07:00 Hgb 14.6 GM/dL (11.7-16.9) 11/22/16 07:00 Hct 43.5 % (35.4-49) 11/22/16 07:00 MCV 99.6 fl (80-96) H 11/22/16 07:00 MCH 33.4 pg (25.7-33.7) 11/22/16 07:00 MCHC 33.6 g/dl (32.0-35.9) 11/22/16 07:00 RDW 12.7 % (11.9-15.9) 11/22/16 07:00 Plt Count 58 K/MM3 (134-434) L 11/22/16 07:00 MPV 10.5 fl (7.5-11.1) 11/22/16 07:00 PT with INR 11.30 SEC (9.98-11.88) 11/22/16 07:00 INR 1.00 (0.82-1.09) 11/22/16 07:00 Sodium 139 mmol/L (136-145) 11/22/16 07:00 Potassium 4.1 mmol/L (3.5-5.1) 11/22/16 07:00 Chloride 108 mmol/L (98-107) H 11/22/16 07:00 Carbon Dioxide 25 mmol/L (21-32) 11/22/16 07:00 Anion Gap 6 (8-16) L 11/22/16 07:00 BUN 9 mg/dL (7-18) 11/22/16 07:00 Creatinine 0.8 mg/dL (0.7-1.3) 11/22/16 07:00 Creat Clearance w eGFR > 60 (>60) 11/22/16 07:00 Random Glucose 95 mg/dL (74-106) D 11/22/16 07:00 Calcium 8.6 mg/dL (8.5-10.1) 11/22/16 07:00 Total Bilirubin 1.0 mg/dL (0.2-1.0) D 11/22/16 07:00 AST 63 U/L (15-37) H 11/22/16 07:00 ALT 85 U/L (12-78) H D 11/22/16 07:00 Alkaline Phosphatase 75 U/L (45-117) 11/22/16 07:00 Total Protein 6.4 g/dl (6.4-8.2) 11/22/16 07:00 Albumin 3.6 g/dl (3.4-5.0) 11/22/16 07:00 Urine Color Sasha 11/19/16 19:00 Urine Appearance Slcloudy 11/19/16 19:00 Urine pH 6.0 (5.0-8.0) 11/19/16 19:00 Ur Specific [place] 1.020 (1.005-1.025) 11/19/16 19:00 Urine Protein Negative (NEGATIVE) 11/19/16 19:00 Urine Glucose (UA) Negative (NEGATIVE) 11/19/16 19:00 Urine Ketones Negative (NEGATIVE) 11/19/16 19:00 Urine Blood Negative (NEGATIVE) 11/19/16 19:00 Urine Nitrite Negative (NEGATIVE) 11/19/16 19:00 Urine Bilirubin Negative (NEGATIVE) 11/19/16 19:00 Urine Urobilinogen 4.0 e.u/dl mg/dL (0.2-1.0) 11/19/16 19:00 Ur Leukocyte Esterase Negative (NEGATIVE) 11/19/16 19:00 RPR Titer Nonreactive (NONREACTIVE) 11/20/16 08:00 Assessment: 11/22/16 10:53 WITHDRAWAL SX Plan: CONTINUE DETOX
[2016-11-22] MEDS: chlordiazePOXIDE HCL 10 MG CAPSULE PO SCH (22:06)
[2016-11-22] MEDS: THIAMINE HCL 100 MG TABLET (FP) PO SCH (22:06)
[2016-11-22] MEDS: diphenhydrAMINE HCL 50 MG CAPSULE PO PRN (22:07)
[2016-11-23] MEDS: chlordiazePOXIDE HCL 10 MG CAPSULE PO SCH ×2 (05:54→11:25)
[2016-11-23 09:24] VITALS: BP 114/75; PULSE 71; TEMP 97.3
[2016-11-23] MEDS: PRENATAL VITAMINS W/ FOLIC ACID TABLET (FP) PO SCH (10:33)
[2016-11-23] MEDS: NICOTINE 14 MG/24 HOURS TOPICAL PATCH TD SCH (10:33)
--- NOTE | 2016-11-23 11:04 | DS ---
[facility] Detox Discharge Summary Admission Date: 11/19/16 Discharge Date: 11/23/16 - History Present History: Alcohol Dependence, Cannabis Dependence, Cocaine Dependence Additional Comments: DETOX COMPLETED. ALERT O X 3. NAD. PT INSTRUCTED TO FOLLOW UP WITH PCP AT [facility] NEEDED. Pertinent Past History: HEP C HX HX LOW PLATELETS - Physical Exam Results Vital Signs: Vital Signs Temperature 97.3 F L 11/23/16 09:23 Pulse Rate 71 11/23/16 09:23 Respiratory Rate 18 11/23/16 09:23 Blood Pressure 114/75 11/23/16 09:23 O2 Sat by Pulse Oximetry (%) Pertinent Admission Physical Exam Findings: WITHDRAWAL SX Laboratory Last Values WBC 2.0 K/mm3 (4.0-10.0) L 11/22/16 07:00 Corrected WBC (auto) Cancelled 11/22/16 07:40 RBC 4.37 M/mm3 (4.00-5.60) 11/22/16 07:00 Hgb 14.6 GM/dL (11.7-16.9) 11/22/16 07:00 Hct 43.5 % (35.4-49) 11/22/16 07:00 MCV 99.6 fl (80-96) H 11/22/16 07:00 MCH 33.4 pg (25.7-33.7) 11/22/16 07:00 MCHC 33.6 g/dl (32.0-35.9) 11/22/16 07:00 RDW 12.7 % (11.9-15.9) 11/22/16 07:00 Plt Count 58 K/MM3 (134-434) L 11/22/16 07:00 MPV 10.5 fl (7.5-11.1) 11/22/16 07:00 Neutrophils % Cancelled 11/22/16 07:40 Lymphocytes % Cancelled 11/22/16 07:40 Monocytes % Cancelled 11/22/16 07:40 Eosinophils % Cancelled 11/22/16 07:40 Basophils % Cancelled 11/22/16 07:40 Platelet Estimate Cancelled 11/22/16 07:40 Platelet Comment Cancelled 11/22/16 07:40 Platelet Comment Cancelled 11/22/16 07:40 RBC Morphology Cancelled 11/22/16 07:40 PT with INR 11.30 SEC (9.98-11.88) 11/22/16 07:00 INR 1.00 (0.82-1.09) 11/22/16 07:00 Sodium 139 mmol/L (136-145) 11/22/16 07:00 Potassium 4.1 mmol/L (3.5-5.1) 11/22/16 07:00 Chloride 108 mmol/L (98-107) H 11/22/16 07:00 Carbon Dioxide 25 mmol/L (21-32) 11/22/16 07:00 Anion Gap 6 (8-16) L 11/22/16 07:00 BUN 9 mg/dL (7-18) 11/22/16 07:00 Creatinine 0.8 mg/dL (0.7-1.3) 11/22/16 07:00 Creat Clearance w eGFR > 60 (>60) 11/22/16 07:00 Random Glucose 95 mg/dL (74-106) D 11/22/16 07:00 Calcium 8.6 mg/dL (8.5-10.1) 11/22/16 07:00 Total Bilirubin 1.0 mg/dL (0.2-1.0) D 11/22/16 07:00 AST 63 U/L (15-37) H 11/22/16 07:00 ALT 85 U/L (12-78) H D 11/22/16 07:00 Alkaline Phosphatase 75 U/L (45-117) 11/22/16 07:00 Total Protein 6.4 g/dl (6.4-8.2) 11/22/16 07:00 Albumin 3.6 g/dl (3.4-5.0) 11/22/16 07:00 Urine Color Sasha 11/19/16 19:00 Urine Appearance Slcloudy 11/19/16 19:00 Urine pH 6.0 (5.0-8.0) 11/19/16 19:00 Ur Specific [place] 1.020 (1.005-1.025) 11/19/16 19:00 Urine Protein Negative (NEGATIVE) 11/19/16 19:00 Urine Glucose (UA) Negative (NEGATIVE) 11/19/16 19:00 Urine Ketones Negative (NEGATIVE) 11/19/16 19:00 Urine Blood Negative (NEGATIVE) 11/19/16 19:00 Urine Nitrite Negative (NEGATIVE) 11/19/16 19:00 Urine Bilirubin Negative (NEGATIVE) 11/19/16 19:00 Urine Urobilinogen 4.0 e.u/dl mg/dL (0.2-1.0) 11/19/16 19:00 Ur Leukocyte Esterase Negative (NEGATIVE) 11/19/16 19:00 RPR Titer Nonreactive (NONREACTIVE) 11/20/16 08:00 - Treatment Hospital Course: Detox Protocol Followed, Detoxed Safely, Responded well, Discharged Condition Good, Rehab Referral Accepted Patient has Accepted a Rehab Referral to: [facility] - Medication Discharge Medications: Ambulatory Orders NK [No Known Home Medication] 06/08/16 - Diagnosis (1) Alcohol dependence with uncomplicated withdrawal Current Visit: Yes Status: Acute (2) Nicotine dependence Current Visit: Yes Status: Acute Qualifiers: Nicotine product type: cigarettes Substance use status: in withdrawal Qualified Code(s): F17.213 - Nicotine dependence, cigarettes, with withdrawal; F17.213 - Nicotine dependence, cigarettes, with withdrawal (3) Cannabis dependence, uncomplicated Current Visit: Yes Status: Acute (4) Cocaine dependence, uncomplicated Current Visit: Yes Status: Acute (5) Hx of thrombocytopenia Current Visit: Yes Status: Suspected - AMA Did Patient Leave Against Medical Advice: No
== END 2016-11-23 11:34 | disposition home or self-care (01) | DRG 774 ==
LOC: YASAS 10:55 → Y3N 16:58
PROVIDERS: ADMIT Internal Medicine; ATTEND Internal Medicine
PROC: HZ2ZZZZ Detoxification Services for Substance Abuse Treatment (ICD-10-PCS; principal; 2016-11-19)
DX: F10.230 Alcohol dependence with withdrawal, uncomplicated (principal); F14.20 Cocaine dependence, uncomplicated; F12.20 Cannabis dependence, uncomplicated; F17.213 Nicotine dependence, cigarettes, with withdrawal; D69.6 Thrombocytopenia, unspecified; R76.11 Nonspecific reaction to tuberculin skin test without active tuberculosis; Z89.021 Acquired absence of right finger(s)
CPT/HCPCS: 36415; 80053; 81003; 85027; 85610; 86593; 90688; 93005; 93010; G0008

== ENCOUNTER 2017-07-31 08:38 | Inpatient (IN) | payer OTHER ==
--- NOTE | 2017-07-31 11:28 | HP ---
CIWA Score - CIWA Score Nausea/Vomitin-No Nausea/No Vomiting Muscle Tremors: 4-Moderate,w/Arms Extend Anxiety: 1-Mildly Anxious Agitation: 1-Slight > Activity Paroxysmal Sweats: 4-Forehead w/Sweat Beads Orientation: 0-Oriented Tacttile Disturbances: 0-None Auditory Disturbances: 0-None Visual Disturbances: 0-None Headache: 2-Mild CIWA-Ar Total Score: 12 Admission ROS S - HPI Chief Complaint: Alcohol withdrawal. Allergies/Adverse Reactions: Allergies Allergy/AdvReac Type Severity Reaction Status Date / Time No Known Allergies Allergy Verified 07/31/17 10:05 History of Present Illness: 46 yom w/ hx alcohol use since age 12. Drinks daily. Denies hx seizures or blackouts. Marijuana use since age 12. Now only smokes 2-3 x/week. Cocaine use began at age 17. Usually smokes it. Now only uses 2x/mth. States in past has had 2-3 months of sobriety. Hx PPD (+) w/o medication management. Fell 2 days ago and has sutures in inner and outer upper lip. - Ebola screening Have you traveled outside of the country in the last 21 days: No Have you had contact with anyone from an Ebola affected area: No Have you been sick,other than usual withdrawal symptoms: No Do you have a fever: No - Review of Systems Constitutional: Night Sweats (Once in a while. Denies cough or fever.), Unintentional Wgt. Loss (2-3 lbs last month.) EENT: reports: Blurred Vision (States needs reading glasses.), Dental Problems ( Poor dental hygiene. Denies difficulty chewing or swallowing.), Mouth Swelling ( Fell and now has stitches on outer upper lip and inner lip.) Respiratory: reports: No Symptoms reported Cardiac: reports: No Symptoms Reported GI: reports: No Symptoms Reported : reports: No Symptoms Reported Musculoskeletal: reports: No Symptoms Reported Integumentary: reports: Change in Color (Hx vitalago of skin), Other (c/o athlete's foot) Neuro: reports: Headache (mild r/t withdrawal), Tremors Endocrine: reports: No Symptoms Reported Hematology: reports: No Symptoms Reported Psychiatric: reports: Orientated x3, Anxious (r/t withdrawal), Depressed (Mild depression r/t alcohol use. Denies suicide or violent ideation.) Patient History - Patient Medical History Hx Anemia: No Hx Asthma: No Hx Chronic Obstructive Pulmonary Disease (COPD): No Hx Cancer: No Hx Cardiac Disorders: No Hx Congestive Heart Failure: No Hx Hypertension: No Hx Hypercholesterolemia: No Hx Pacemaker: No HX Cerebrovascular Accident: No Hx Seizures: No Hx Dementia: No Hx Diabetes: No Hx Gastrointestinal Disorders: No Hx Liver Disease: No (Need labs to determine if Hep C infection exists) Hx Genitourinary Disorders: No Hx Sexually Transmitted Disorders: No Hx Renal Disease (ESRD): No Hx Thyroid Disease: No Hx Human Immunodeficiency Virus (HIV): No (NEGATIVE HX) Hx Hepatitis C: No Hx Depression: No Hx Suicide Attempt: No Hx Bipolar Disorder: No Hx Schizophrenia: No - Patient Surgical History Past Surgical History: Yes Hx Neurologic Surgery: No Hx Cataract Extraction: No Hx Cardiac Surgery: No Hx Lung Surgery: No Hx Breast Surgery: No Hx Breast Biopsy: No Hx Abdominal Surgery: No Hx Appendectomy: No Hx Cholecystectomy: No Hx Genitourinary Surgery: No Hx Section: No Hx Orthopedic Surgery: Yes (right 4th finger distal amputee) Other Surgical History: LT MANDIBLE FX--PLATE IN PLACE 2014 Anesthesia Reaction: No - PPD History Documented Results: Positive w/proof Results: CXR(-)06/09/2016 PPD to be Administered?: No - Smoking Cessation Smoking history: Current every day smoker Have you smoked in the past 12 months: Yes Aproximately how many cigarettes per day: 5 Cigars Per Day: 0 Hx Chewing Tobacco Use: No Initiated information on smoking cessation: Yes 'Breaking Loose' booklet given: 07/31/17 - Substance & Tx. History Hx Alcohol Use: Yes Hx Substance Use: Yes Substance Use Type: Alcohol, Cocaine, Marijuana Hx Substance Use Treatment: Yes (detox ) - Substances Abused Alcohol Route: Oral Frequency: Daily Amount used: 4 4 OUNCES OF VODKA, 2-3 CANS OF BEER (24 OUNCES) Age of first use: 12 Date of Last Use: 07/30/17 Cocaine Route: Smoking Frequency: 1-3 times last 30 days Amount used: $20 Age of first use: 17 Date of Last Use: 07/04/17 Marijuana/Hashish Route: Smoking Frequency: 1-2 times per week Amount used: 2 blunts Age of first use: 12 Date of Last Use: 07/29/17 Family Disease History - Family Disease History Family Disease History: Diabetes: Father (), Other: Mother (SEIZURES/ ALCOHOLISM-), Sister (alcoholic) Admission Physical Exam [facility] - Vital Signs Vital Signs: Vital Signs - 24 hr 07/31/17 08:56 Temperature 97.1 F L Pulse Rate 58 L Respiratory 17 Rate Blood Pressure 117/86 - Physical General Appearance: Yes: Nourished, Tremorous, Sweating, Anxious HEENTM: Yes: EOMI, Normal Voice, ABILIO, Other (Sutures on upper lip area. No discharge.) Respiratory: Yes: Chest Non-Tender, Lungs Clear, Normal Breath Sounds, No Respiratory Distress Neck: Yes: No masses,lesions,Nodules, Supple Breast: Yes: Breast Exam Deferred Cardiology: Yes: Regular Rhythm, Regular Rate, S1, S2 Abdominal: Yes: Normal Bowel Sounds, Non Tender, Flat, Soft Genitourinary: Yes: Within Normal Limits Back: Yes: Normal Inspection Musculoskeletal: Yes: full range of Motion, Gait Steady Extremities: Yes: Normal Capillary Refill, Normal Range of Motion, Non-Tender, Tremors, Other (s/p amputation distal tip of 4th finger.) Neurological: Yes: human resources talent manager II-XII NML intact, Fully Oriented, Motor Strength 5/5 Integumentary: Yes: Other (areas of skin with decreased pigmentation, greatest loss noted on hands) Lymphatic: Yes: Within Normal Limits - Diagnostic (1) Alcohol dependence with uncomplicated withdrawal Current Visit: Yes Status: Acute (2) Cannabis dependence, uncomplicated Current Visit: Yes Status: Chronic (3) Cocaine dependence, uncomplicated Current Visit: Yes Status: Acute (4) Nicotine dependence Current Visit: Yes Status: Acute Qualifiers: Nicotine product type: cigarettes Substance use status: in withdrawal Qualified Code(s): F17.213 - Nicotine dependence, cigarettes, with withdrawal (5) Tinea pedis Current Visit: Yes Status: Acute Qualifiers: Laterality: bilateral Qualified Code(s): B35.3 - Tinea pedis (6) Lip laceration Current Visit: Yes Status: Chronic Qualifiers: Encounter type: subsequent encounter Qualified Code(s): S01.511D - Laceration without foreign body of lip, subsequent encounter (7) Vitiligo Current Visit: Yes Status: Chronic Cleared for Admission [facility] - Detox or Rehab [facility] Level of Care: Medically Managed Detox Regimen/Protocol: Librium S Breath Alcohol Content Breath Alcohol Content: 0 Urine Drug Screen - Results Drug Screen Negative: Yes Urine Drug Screen Results: THC-Marijuana
[2017-07-31] MEDS ORDERED: MAGNESIUM HYDROX 2400MG/30ML ORAL SUSPENSION 30 ML CUP PO PRN (11:52)
[2017-07-31] MEDS ORDERED: guaiFENesin/D-METHORPHAN HB 10 ML UNIT-DOSE CUPS PO PRN (11:52)
[2017-07-31] MEDS ORDERED: ACETAMINOPHEN 325 MG TABLET (FP) PO PRN (11:52)
[2017-07-31] MEDS ORDERED: chlordiazePOXIDE HCL 25 MG CAPSULE PO PRN (11:52)
[2017-07-31] MEDS ORDERED: LOPERAMIDE HCL 2 MG CAPSULE PO PRN (11:52)
[2017-07-31] MEDS ORDERED: NICOTINE POLACRILEX 2 MG GUM BC PRN (11:52)
[2017-07-31] MEDS ORDERED: hydrOXYzine PAMOATE 50 MG CAPSULE (FP) PO PRN (11:52)
[2017-07-31] MEDS ORDERED: MAGNESIUM CITRATE 300 ML BOTTLE PO PRN (11:52)
[2017-07-31] MEDS ORDERED: IBUPROFEN 400 MG TABLET (FP) PO PRN (11:52)
[2017-07-31] MEDS ORDERED: MAG HYDROX/AL HYDROX/SIMETH 30 ML UNIT-DOSE CUP PO PRN (11:52)
[2017-07-31] MEDS ORDERED: P-EPHED 60MG/TRIPROLIDI 2.5MG TABLET PO PRN (11:52)
[2017-07-31] MEDS ORDERED: MENTHOL/PHENOL 1 EACH UD MM PRN (11:52)
--- NOTE | 2017-07-31 13:28 | PN ---
S CIWA - CIWA Score Nausea/Vomitin-No Nausea/No Vomiting Muscle Tremors: 4-Moderate,w/Arms Extend Anxiety: 4-Mod. Anxious/Guarded Agitation: 4-Moderately Restless Paroxysmal Sweats: 1-Minimal Palms Moist Orientation: 0-Oriented Tacttile Disturbances: 0-None Auditory Disturbances: 0-None Visual Disturbances: 0-None Headache: 2-Mild CIWA-Ar Total Score: 15 BHS Progress Note (SOAP) Subjective: C/O ANXIETY,IRRITABILITY,HEADACHE. Objective: 07/31/17 13:27 Vital Signs 07/31/17 08:56 Temperature 97.1 F L Pulse Rate 58 L Respiratory 17 Rate Blood Pressure 117/86 LABS PENDING Assessment: 07/31/17 13:27 WITHDRAWAL SX Plan: CONTINUE DETOX MOTRIN OR TYLENOL PRN INCREASE PO FLUIDS
[2017-07-31] MEDS: chlordiazePOXIDE HCL 25 MG CAPSULE PO SCH ×2 (16:57→22:32)
[2017-07-31 18:56] LABS: URINE APPEARANCE CLEAR; URINE BILIRUBIN NEGATIVE (<2.0 mg/dL); URINE COLOR AMBER; URINE GLUCOSE (UA) NEGATIVE (NEGATIVE); URINE KETONE NEGATIVE (NEGATIVE); URINE LEUK ESTERASE NEGATIVE (NEGATIVE); URINE NITRITE NEGATIVE (NEGATIVE); URINE PROTEIN NEGATIVE (NEGATIVE); URINE UROBILINOGEN 4.0 E.U/dl mg/dL (0.2-1.0)
[2017-07-31] MEDS ORDERED: MELATONIN 5 MG TABLETS PO PRN (22:00)
[2017-07-31] MEDS: THIAMINE HCL 100 MG TABLET (FP) PO SCH (22:31)
[2017-07-31] MEDS: CLOTRIMAZOLE 1% CREAM 15 GM TUBE TP SCH (22:31)
[2017-08-01] MEDS: chlordiazePOXIDE HCL 25 MG CAPSULE PO SCH ×4 (05:41→22:13)
[2017-08-01 10:06] LABS: HEMATOCRIT 46.1 % (35.4-49); HEMOGLOBIN 15.8 GM/dL (11.7-16.9); MCH 34.4 pg (25.7-33.7); MCHC 34.3 g/dl (32.0-35.9); MEAN CELL VOLUME 100.4 fl (80-96); MEAN PLT VOLUME 9.8 fl (7.5-11.1); PLATELET COUNT 64 K/MM3 (134-434); RBC 4.59 M/mm3 (4.00-5.60); RDW 13.3 % (11.9-15.9); WHITE BLOOD COUNT 2.3 K/mm3 (4.0-10.0)
[2017-08-01] MEDS: PRENATAL VITAMINS W/ FOLIC ACID TABLET (FP) PO SCH (10:20)
[2017-08-01] MEDS: CLOTRIMAZOLE 1% CREAM 15 GM TUBE TP SCH ×2 (10:20→22:14)
[2017-08-01 10:21] LABS: CHLORIDE 105 mmol/L (98-107); POTASSIUM 4.1 mmol/L (3.5-5.1); SODIUM 140 mmol/L (136-145)
[2017-08-01 10:42] LABS: ALBUMIN 3.7 g/dl (3.4-5.0); ALK PHOS 61 U/L (45-117); ANION GAP 5 (8-16); BLOOD UREA NITROGEN 10 mg/dL (7-18); CALCIUM 8.7 mg/dL (8.5-10.1); CO2 30 mmol/L (21-32); GLUCOSE,RANDOM 75 mg/dL (74-106); SGOT/AST 45 U/L (15-37); SGPT/ALT 62 U/L (12-78); TOT PROT 6.6 g/dl (6.4-8.2)
--- NOTE | 2017-08-01 10:44 | CONSULT ---
[facility] Psychiatric Consult - Data Date of interview: 08/01/17 Admission source: [facility] Identifying data: Patient is a 46 year old single male, father of five (one child ), unemployed and currently homeless. This is one of multiple admissions for patient. Pt. admitted for alcohol, marijuana, and cocaine dependence. Substance Abuse History: - Smoking Cessation. Smoking history: Current every day smoker. Have you smoked in the past 12 months: Yes. Aproximately how many cigarettes per day: 5. Cigars Per Day: 0. Hx Chewing Tobacco Use: No. Initiated information on smoking cessation: Yes. 'Breaking Loose' booklet given : 07/31/17. - Substance & Tx. History. Hx Alcohol Use: Yes. Hx Substance Use : Yes. Substance Use Type: Alcohol, Cocaine, Marijuana. Hx Substance Use Treatment: Yes (detox ). - Substances Abused. Alcohol. Route: Oral. Frequency: Daily. Amount used: 4 4 OUNCES OF VODKA, 2-3 CANS OF BEER (24 OUNCES ). Age of first use: 12. Date of Last Use: 07/30/17. Cocaine. Route: Smoking. Frequency: 1-3 times last 30 days. Amount used: $20. Age of first use: 17. Date of Last Use: 07/04/17. Marijuana/Hashish. Route: Smoking. Frequency: 1-2 times per week. Amount used: 2 blunts. Age of first use: 12. 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 Physical/Sexual Abuse/Trauma History: Denies. Mental Status Exam - Mental Status Exam Alert and Oriented to: Time, Place, Person Cognitive Function: Good Patient Appearance: Unkempt Mood: Euthymic Affect: Mood Congruent Patient Behavior: Cooperative Speech Pattern: Appropriate Voice Loudness: Moderately Soft/Quiet Thought Process: Goal Oriented Thought Disorder: Not Present Hallucinations: Denies Suicidal Ideation: Denies Homicidal Ideation: Denies Insight/Judgement: Poor Sleep: Well Appetite: Good Muscle strength/Tone: Normal Gait/Station: Normal Psychiatric Findings - Problem List ([place] 1, 2,3) (1) Substance induced mood disorder Current Visit: Yes Status: Acute (2) Alcohol dependence with uncomplicated withdrawal Current Visit: Yes Status: Acute (3) Cocaine dependence, uncomplicated Current Visit: Yes Status: Acute (4) Nicotine dependence Current Visit: Yes Status: Acute Qualifiers: Nicotine product type: cigarettes Substance use status: in withdrawal Qualified Code(s): F17.213 - Nicotine dependence, cigarettes, with withdrawal (5) Tinea pedis Current Visit: Yes Status: Acute Qualifiers: Laterality: bilateral Qualified Code(s): B35.3 - Tinea pedis (6) Cannabis dependence, uncomplicated Current Visit: Yes Status: Chronic (7) Lip laceration Current Visit: Yes Status: Chronic Qualifiers: Encounter type: subsequent encounter Qualified Code(s): S01.511D - Laceration without foreign body of lip, subsequent encounter (8) Vitiligo Current Visit: Yes Status: Chronic - Initial Treatment Plan Initial Treatment Plan: Psychoeducation provided. Detoxification in progress. Observation.
--- NOTE | 2017-08-01 14:06 | PN ---
[facility] CIWA - CIWA Score Nausea/Vomitin Muscle Tremors: 3 Anxiety: 3 Agitation: 3 Paroxysmal Sweats: 3 Orientation: 0-Oriented Tacttile Disturbances: 0-None Auditory Disturbances: 0-None Visual Disturbances: 0-None Headache: 0-None Present CIWA-Ar Total Score: 15 S Progress Note (SOAP) Subjective: Sleep disturbance Shakes Sweats Objective: 08/01/17 14:03 A O X 3 Sleepy, not in acute distress Vital Signs Temperature 98.9 F 08/01/17 13:08 Pulse Rate 76 08/01/17 13:08 Respiratory Rate 18 08/01/17 13:08 Blood Pressure 117/78 08/01/17 13:08 O2 Sat by Pulse Oximetry (%) Laboratory Last Values WBC 2.3 K/mm3 (4.0-10.0) L 08/01/17 07:30 RBC 4.59 M/mm3 (4.00-5.60) 08/01/17 07:30 Hgb 15.8 GM/dL (11.7-16.9) 08/01/17 07:30 Hct 46.1 % (35.4-49) 08/01/17 07:30 MCV 100.4 fl (80-96) H 08/01/17 07:30 MCH 34.4 pg (25.7-33.7) H 08/01/17 07:30 MCHC 34.3 g/dl (32.0-35.9) 08/01/17 07:30 RDW 13.3 % (11.9-15.9) 08/01/17 07:30 Plt Count 64 K/MM3 (134-434) L 08/01/17 07:30 MPV 9.8 fl (7.5-11.1) 08/01/17 07:30 Sodium 140 mmol/L (136-145) 08/01/17 07:30 Potassium 4.1 mmol/L (3.5-5.1) 08/01/17 07:30 Chloride 105 mmol/L (98-107) 08/01/17 07:30 Carbon Dioxide 30 mmol/L (21-32) 08/01/17 07:30 Anion Gap 5 (8-16) L 08/01/17 07:30 BUN 10 mg/dL (7-18) 08/01/17 07:30 Creatinine 1.0 mg/dL (0.7-1.3) 08/01/17 07:30 Creat Clearance w eGFR > 60 (>60) 08/01/17 07:30 Random Glucose 75 mg/dL (74-106) D 08/01/17 07:30 Calcium 8.7 mg/dL (8.5-10.1) 08/01/17 07:30 Total Bilirubin 2.0 mg/dL (0.2-1.0) H 08/01/17 07:30 AST 45 U/L (15-37) H D 08/01/17 07:30 ALT 62 U/L (12-78) D 08/01/17 07:30 Alkaline Phosphatase 61 U/L (45-117) 08/01/17 07:30 Total Protein 6.6 g/dl (6.4-8.2) 08/01/17 07:30 Albumin 3.7 g/dl (3.4-5.0) 08/01/17 07:30 Urine Color Sasha 07/31/17 18:00 Urine Appearance Clear 07/31/17 18:00 Urine pH 6.0 (5.0-8.0) 07/31/17 18:00 Ur Specific [place] 1.023 (1.001-1.035) 07/31/17 18:00 Urine Protein Negative (NEGATIVE) 07/31/17 18:00 Urine Glucose (UA) Negative (NEGATIVE) 07/31/17 18:00 Urine Ketones Negative (NEGATIVE) 07/31/17 18:00 Urine Blood Negative (NEGATIVE) 07/31/17 18:00 Urine Nitrite Negative (NEGATIVE) 07/31/17 18:00 Urine Bilirubin Negative (<2.0 mg/dL) 07/31/17 18:00 Urine Urobilinogen 4.0 e.u/dl mg/dL (0.2-1.0) 07/31/17 18:00 Ur Leukocyte Esterase Negative (NEGATIVE) 07/31/17 18:00 RPR Titer Nonreactive (NONREACTIVE) 08/01/17 07:30 HIV 1&2 Antibody Screen Negative 08/01/17 07:30 HIV P24 Antigen Negative 08/01/17 07:30 LAbs noted, elevated urine urobilinoge, AST, ALT Assessment: 06/25/18 14:05 withdrawal sx Plan: continue detox Increase fluid intake
--- NOTE | 2017-08-01 22:12 | EKG ---
Test Reason : Blood Pressure : / mmHG Vent. Rate : 058 BPM Atrial Rate : 058 BPM P-R Int : 178 ms QRS Dur : 088 ms QT Int : 386 ms P-R-T Axes : 077 075 075 degrees QTc Int : 378 ms SINUS BRADYCARDIA POSSIBLE LEFT ATRIAL ENLARGEMENT BORDERLINE ECG WHEN COMPARED WITH ECG OF 19-NOV-2016 18:46, NO SIGNIFICANT CHANGE WAS FOUND Confirmed by THERESA BACON MD ([id number]) on 08/01/2017 10:12:22 PM Referred By: Bobby Anaya Confirmed By:THERESA BACON MD
[2017-08-01] MEDS: THIAMINE HCL 100 MG TABLET (FP) PO SCH (22:13)
[2017-08-02] MEDS: chlordiazePOXIDE HCL 25 MG CAPSULE PO SCH ×2 (05:43→10:16)
[2017-08-02] MEDS: CLOTRIMAZOLE 1% CREAM 15 GM TUBE TP SCH ×2 (10:16→22:18)
[2017-08-02] MEDS: PRENATAL VITAMINS W/ FOLIC ACID TABLET (FP) PO SCH (10:16)
--- NOTE | 2017-08-02 11:44 | PN ---
BHS Progress Note (SOAP) Subjective: Sweating, Fatigue, Interrupted Sleep. Objective: PATIENT A & O X 3. NO ACUTE DISTRESS. 08/02/17 11:39 Vital Signs Temperature 99.1 F 08/02/17 09:05 Pulse Rate 72 08/02/17 09:05 Respiratory Rate 18 08/02/17 09:05 Blood Pressure 96/66 08/02/17 09:05 O2 Sat by Pulse Oximetry (%) Laboratory Tests 07/31/17 08/01/17 08/01/17 18:00 07:30 07:30 WBC 2.3 L RBC 4.59 Hgb 15.8 Hct 46.1 MCV 100.4 H MCH 34.4 H MCHC 34.3 RDW 13.3 Plt Count 64 L MPV 9.8 Sodium Potassium Chloride Carbon Dioxide Anion Gap BUN Creatinine Creat Clearance w eGFR Random Glucose Calcium Total Bilirubin AST ALT Alkaline Phosphatase Total Protein Albumin Urine Color Sasha Urine Appearance Clear Urine pH 6.0 Ur Specific [place] 1.023 Urine Protein Negative Urine Glucose (UA) Negative Urine Ketones Negative Urine Blood Negative Urine Nitrite Negative Urine Bilirubin Negative Urine Urobilinogen 4.0 e.u/dl Ur Leukocyte Esterase Negative RPR Titer HIV 1&2 Antibody Screen Negative HIV P24 Antigen Negative 08/01/17 08/01/17 07:30 07:30 WBC RBC Hgb Hct MCV MCH MCHC RDW Plt Count MPV Sodium 140 Potassium 4.1 Chloride 105 Carbon Dioxide 30 Anion Gap 5 L BUN 10 Creatinine 1.0 Creat Clearance w eGFR > 60 Random Glucose 75 D Calcium 8.7 Total Bilirubin 2.0 H AST 45 H D ALT 62 D Alkaline Phosphatase 61 Total Protein 6.6 Albumin 3.7 Urine Color Urine Appearance Urine pH Ur Specific [place] Urine Protein Urine Glucose (UA) Urine Ketones Urine Blood Urine Nitrite Urine Bilirubin Urine Urobilinogen Ur Leukocyte Esterase RPR Titer Nonreactive HIV 1&2 Antibody Screen HIV P24 Antigen LABS NOTED. PATIENT HAS HAD LOW WBC AND PLATELET LEVELS AND ELEVATED TOTAL BILIRUBIN LEVELS ON SEVERAL PREVIOUS ADMISSIONS. 08/02/17 11:42 Assessment: 08/02/17 11:39 WITHDRAWAL SYMPTOMS. LEUKOPENIA. THROMBOCYTOPENIA. 08/02/17 11:41 Plan: CONTINUE DETOX. ENCOURAGE AMBULATION. INCREASE DAILY PO FLUID INTAKE.
[2017-08-02] MEDS: chlordiazePOXIDE 5 MG CAPSULE PO SCH ×2 (17:41→22:18)
[2017-08-02] MEDS: THIAMINE HCL 100 MG TABLET (FP) PO SCH (22:18)
[2017-08-03] MEDS: chlordiazePOXIDE 5 MG CAPSULE PO SCH ×2 (05:25→10:22)
[2017-08-03] MEDS: CLOTRIMAZOLE 1% CREAM 15 GM TUBE TP SCH ×2 (10:21→22:26)
[2017-08-03] MEDS: PRENATAL VITAMINS W/ FOLIC ACID TABLET (FP) PO SCH (10:22)
--- NOTE | 2017-08-03 13:14 | PN ---
BHS Progress Note (SOAP) Subjective: Fatigue, Interrupted Sleep. Objective: PATIENT A & O X 3. NO ACUTE DISTRESS. 08/03/17 13:15 Vital Signs Temperature 97.6 F 08/03/17 09:20 Pulse Rate 77 08/03/17 09:20 Respiratory Rate 18 08/03/17 09:20 Blood Pressure 91/60 08/03/17 09:20 O2 Sat by Pulse Oximetry (%) Laboratory Tests 07/31/17 08/01/17 08/01/17 18:00 07:30 07:30 WBC 2.3 L RBC 4.59 Hgb 15.8 Hct 46.1 MCV 100.4 H MCH 34.4 H MCHC 34.3 RDW 13.3 Plt Count 64 L MPV 9.8 Sodium Potassium Chloride Carbon Dioxide Anion Gap BUN Creatinine Creat Clearance w eGFR Random Glucose Calcium Total Bilirubin AST ALT Alkaline Phosphatase Total Protein Albumin Urine Color Sasha Urine Appearance Clear Urine pH 6.0 Ur Specific [place] 1.023 Urine Protein Negative Urine Glucose (UA) Negative Urine Ketones Negative Urine Blood Negative Urine Nitrite Negative Urine Bilirubin Negative Urine Urobilinogen 4.0 e.u/dl Ur Leukocyte Esterase Negative RPR Titer HIV 1&2 Antibody Screen Negative HIV P24 Antigen Negative 08/01/17 08/01/17 07:30 07:30 WBC RBC Hgb Hct MCV MCH MCHC RDW Plt Count MPV Sodium 140 Potassium 4.1 Chloride 105 Carbon Dioxide 30 Anion Gap 5 L BUN 10 Creatinine 1.0 Creat Clearance w eGFR > 60 Random Glucose 75 D Calcium 8.7 Total Bilirubin 2.0 H AST 45 H D ALT 62 D Alkaline Phosphatase 61 Total Protein 6.6 Albumin 3.7 Urine Color Urine Appearance Urine pH Ur Specific [place] Urine Protein Urine Glucose (UA) Urine Ketones Urine Blood Urine Nitrite Urine Bilirubin Urine Urobilinogen Ur Leukocyte Esterase RPR Titer Nonreactive HIV 1&2 Antibody Screen HIV P24 Antigen LABS NOTED. Assessment: 08/03/17 13:15 WITHDRAWAL SYMPTOMS. LEUKOPENIA. THROMBOCYTOPENIA. 08/03/17 13:17 Plan: CONTINUE DETOX. INCREASE DAILY PO FLUID INTAKE. ENCOURAGE AMBULATION. PATIENT SCHEDULED FOR D/C TOMORROW.
[2017-08-03] MEDS: chlordiazePOXIDE HCL 10 MG CAPSULE PO SCH ×2 (17:31→22:26)
[2017-08-03] MEDS: THIAMINE HCL 100 MG TABLET (FP) PO SCH (22:26)
[2017-08-04] MEDS: chlordiazePOXIDE HCL 10 MG CAPSULE PO SCH (05:54)
[2017-08-04 06:37] VITALS: BP 101/62; PULSE 76; TEMP 97.6
--- NOTE | 2017-08-04 14:03 | PN ---
[facility] Progress Note (SOAP) Subjective: Patient denies current Detox symptoms and reports that he feels well overall. Objective: 08/04/17 14:01 Vital Signs Temperature 97.6 F 08/04/17 06:36 Pulse Rate 76 08/04/17 06:36 Respiratory Rate 18 08/04/17 06:36 Blood Pressure 101/62 08/04/17 06:36 O2 Sat by Pulse Oximetry (%) Laboratory Tests 07/31/17 08/01/17 08/01/17 18:00 07:30 07:30 WBC 2.3 L RBC 4.59 Hgb 15.8 Hct 46.1 MCV 100.4 H MCH 34.4 H MCHC 34.3 RDW 13.3 Plt Count 64 L MPV 9.8 Sodium Potassium Chloride Carbon Dioxide Anion Gap BUN Creatinine Creat Clearance w eGFR Random Glucose Calcium Total Bilirubin AST ALT Alkaline Phosphatase Total Protein Albumin Urine Color Sasha Urine Appearance Clear Urine pH 6.0 Ur Specific [place] 1.023 Urine Protein Negative Urine Glucose (UA) Negative Urine Ketones Negative Urine Blood Negative Urine Nitrite Negative Urine Bilirubin Negative Urine Urobilinogen 4.0 e.u/dl Ur Leukocyte Esterase Negative RPR Titer HIV 1&2 Antibody Screen Negative HIV P24 Antigen Negative 08/01/17 08/01/17 07:30 07:30 WBC RBC Hgb Hct MCV MCH MCHC RDW Plt Count MPV Sodium 140 Potassium 4.1 Chloride 105 Carbon Dioxide 30 Anion Gap 5 L BUN 10 Creatinine 1.0 Creat Clearance w eGFR > 60 Random Glucose 75 D Calcium 8.7 Total Bilirubin 2.0 H AST 45 H D ALT 62 D Alkaline Phosphatase 61 Total Protein 6.6 Albumin 3.7 Urine Color Urine Appearance Urine pH Ur Specific [place] Urine Protein Urine Glucose (UA) Urine Ketones Urine Blood Urine Nitrite Urine Bilirubin Urine Urobilinogen Ur Leukocyte Esterase RPR Titer Nonreactive HIV 1&2 Antibody Screen HIV P24 Antigen LABS NOTED. Assessment: 08/04/17 14:01 COMPLETION OF DETOX REGIMEN. Plan: PATIENT SCHEDULED FOR DISCHARGE FROM DETOX UNIT TODAY. PATIENT GOING ON TO [facility] ([place] FOR AFTERCARE.
--- NOTE | 2017-08-04 14:06 | DS ---
[facility] Detox Discharge Summary Admission Date: 07/31/17 Discharge Date: 08/04/17 - History Present History: Alcohol Dependence, Cannabis Dependence, Cocaine Dependence Additional Comments: PATIENT TO BE TAKEN TO [facility] ([place] ER TO HAVE SUTURES REMOVED FROM INNER AND OUT LIP AREAS. THEN PATIENT WILL RETURN TO [facility] TO GO ON TO [facility] ([place] FOR AFTERCARE. PATIENT WAS DISCHARGED FROM DETOX UNIT IN STABLE MEDICAL CONDITION. Pertinent Past History: Vitiligo, History of Laceration of Lip, Nicotine Dependence, Tinea Pedis, Thrombocytopenia, Luukopenia. - Physical Exam Results Vital Signs: Vital Signs Temperature 97.6 F 08/04/17 06:36 Pulse Rate 76 08/04/17 06:36 Respiratory Rate 18 08/04/17 06:36 Blood Pressure 101/62 08/04/17 06:36 O2 Sat by Pulse Oximetry (%) Pertinent Admission Physical Exam Findings: WITHDRAWAL SYMPTOMS. Laboratory Tests 07/31/17 08/01/17 08/01/17 18:00 07:30 07:30 WBC 2.3 L RBC 4.59 Hgb 15.8 Hct 46.1 MCV 100.4 H MCH 34.4 H MCHC 34.3 RDW 13.3 Plt Count 64 L MPV 9.8 Sodium Potassium Chloride Carbon Dioxide Anion Gap BUN Creatinine Creat Clearance w eGFR Random Glucose Calcium Total Bilirubin AST ALT Alkaline Phosphatase Total Protein Albumin Urine Color Sasha Urine Appearance Clear Urine pH 6.0 Ur Specific [place] 1.023 Urine Protein Negative Urine Glucose (UA) Negative Urine Ketones Negative Urine Blood Negative Urine Nitrite Negative Urine Bilirubin Negative Urine Urobilinogen 4.0 e.u/dl Ur Leukocyte Esterase Negative RPR Titer HIV 1&2 Antibody Screen Negative HIV P24 Antigen Negative 08/01/17 08/01/17 07:30 07:30 WBC RBC Hgb Hct MCV MCH MCHC RDW Plt Count MPV Sodium 140 Potassium 4.1 Chloride 105 Carbon Dioxide 30 Anion Gap 5 L BUN 10 Creatinine 1.0 Creat Clearance w eGFR > 60 Random Glucose 75 D Calcium 8.7 Total Bilirubin 2.0 H AST 45 H D ALT 62 D Alkaline Phosphatase 61 Total Protein 6.6 Albumin 3.7 Urine Color Urine Appearance Urine pH Ur Specific [place] Urine Protein Urine Glucose (UA) Urine Ketones Urine Blood Urine Nitrite Urine Bilirubin Urine Urobilinogen Ur Leukocyte Esterase RPR Titer Nonreactive HIV 1&2 Antibody Screen HIV P24 Antigen LABS NOTED. - Treatment Hospital Course: Detox Protocol Followed, Detoxed Safely, Responded well, Discharged Condition Good, Rehab Referral Accepted Patient has Accepted a Rehab Referral to: [facility] ([place] . - Medication Discharge Medications: Ambulatory Orders NK [No Known Home Medication] 06/08/16 - Diagnosis (1) Thrombocytopenia Status: Chronic (2) Leukopenia Status: Chronic Qualifiers: Leukopenia type: unspecified Qualified Code(s): D72.819 - Decreased white blood cell count, unspecified (3) Alcohol dependence with uncomplicated withdrawal Status: Acute (4) Cocaine dependence, uncomplicated Status: Acute (5) Nicotine dependence Status: Acute Qualifiers: (6) Tinea pedis Status: Acute Qualifiers: Laterality: bilateral Qualified Code(s): B35.3 - Tinea pedis (7) Cannabis dependence, uncomplicated Status: Chronic (8) Lip laceration Status: Chronic Qualifiers: (9) Vitiligo Status: Chronic (10) Substance induced mood disorder Status: Acute - AMA Did Patient Leave Against Medical Advice: No
== END 2017-08-04 10:00 | disposition home or self-care (01) | DRG 774 ==
LOC: YASAS 08:38 → Y3N 11:46
PROVIDERS: ADMIT Family Medicine Addiction Medicine; ATTEND Family Medicine Addiction Medicine
PROC: HZ2ZZZZ Detoxification Services for Substance Abuse Treatment (ICD-10-PCS; principal; 2017-07-31)
DX: F10.230 Alcohol dependence with withdrawal, uncomplicated (principal); F14.20 Cocaine dependence, uncomplicated; F12.20 Cannabis dependence, uncomplicated; F17.210 Nicotine dependence, cigarettes, uncomplicated; F19.24 Other psychoactive substance dependence with psychoactive substance-induced mood disorder; D69.6 Thrombocytopenia, unspecified; D72.819 Decreased white blood cell count, unspecified; B35.3 Tinea pedis; J80 Acute respiratory distress syndrome; R79.89 Other specified abnormal findings of blood chemistry
CPT/HCPCS: 36415; 71046-TC-FY; 80053; 81003; 85027; 86593; 87389; 93005; 93010

== ENCOUNTER 2019-10-01 11:24 | Emergency (ER) | payer OTHER ==
[2019-10-01 11:36] VITALS: BP 111/62; PULSE 88; TEMP 99; BMI 21.9
--- NOTE | 2019-10-01 12:13 | PDOC ---
History of Present Illness - General Chief Complaint: Pain, Acute Stated Complaint: SHOULDER PAIN Time Seen by Provider: 10/01/19 11:37 History Source: Patient Exam Limitations: No Limitations - History of Present Illness Initial Comments: 10/01/19 12:09 41-year-old male history of alcohol cocaine and cannabis use disorder, hep C (treated) other medical history unknown presented to the ED complaining of left shoulder pain and hematuria. Patient states that he dislocated his shoulder in the past and feels instability. Patient states that his shoulder popped back in on his own at that time but ever since he has been feeling clicking and popping in the left shoulder. Patient denies numbness tingling decreased strength or decrease in range of motion. Is also complaining of hematuria worsened after ejaculation. Patient states that he has blood in his urine after he urinates post coitus. Patient states that the amount of blood lessened throughout the day. Denies any discharge pain or trauma. Pt otherwise denies: fevers, chills, syncope, lightheadedness, dizziness, headaches, neck pain, chest pain, shortness of breath, palpitations, back pain, abdominal pain, nausea, vomiting, diarrhea, constipation. Past History - Medical History Allergies/Adverse Reactions: Allergies Allergy/AdvReac Type Severity Reaction Status Date / Time No Known Allergies Allergy Verified 10/01/19 11:34 Home Medications: Ambulatory Orders NK [No Known Home Medication] 06/08/16 Anemia: No Asthma: No Cancer: No Cardiac Disorders: No CVA: No COPD: No CHF: No Dementia: No Diabetes: No GI Disorders: No Disorders: No HTN: No Hypercholesterolemia: No Kidney Stones: No Liver Disease: No (Need labs to determine if Hep C infection exists) Seizures: No Thyroid Disease: No - Surgical History Abdominal Surgery: No Appendectomy: No Cardiac Surgery: No Cholecystectomy: No Lung Surgery: No Neurologic Surgery: No Orthopedic Surgery: Yes (right 4th finger distal amputee) - Reproductive History Testicular Surgery: No - Immunization History Immunization Up to Date: Yes - Psycho-Social/Smoking History Smoking History: Current every day smoker Have you smoked in the past 12 months: Yes Number of Cigarettes Smoked Daily: 5 Cigars Per Day: 0 Information on smoking cessation initiated: No 'Breaking Loose' booklet given: 07/31/17 - Substance Abuse Hx (Audit-C & DAST Scrn) How often the patient has a drink containing alcohol: Never Score: In Men: 4 or > Positive; In Women: 3 or > Positive: 0 Screen Result (Pos requires Nsg. Audit-10AR): Negative In the last yr the pt used illegal drug/Rx for NonMed reason: No Score: Yes response is considered Positive: 0 Screen Result (Positive result requires Nsg. DAST-10): Negative *Physical Exam - Vital Signs Last Vital Signs Temp Pulse Resp BP Pulse Ox 99.0 F 88 20 111/62 100 10/01/19 11:34 10/01/19 11:34 10/01/19 11:34 10/01/19 11:34 10/01/19 11:34 - Physical Exam 10/01/19 12:11 Gen: AAOx 3, no acute distress, comfortable, no signs of respiratory distress HENT: atraumatic, normocephalic with no laceration or contusion. Nasal mucosa without erythema. Oropharynx without erythema or exudates. Mucous membranes moist. EYES: PERRL, EOM intact, conjunctiva pink NECK: supple; trachea midline; no JVD, no lymphadenopathy, or thyromegaly CV: RRR no murmurs, gallops, or rubs. CHEST: CTA b/l no wheezing, rales or rhonchi ABD: +BS/ND. no TTP; soft, no rebound, no guarding GENITAL: Non-tender, non-edematous, circumcised penis with no discharge/bleeding from meatus, + non-tender, non-edematous b/l descended testes with b/l vertical lies; no rashes/lesions/masses/crepitus/LAD; no exudate/bleeding. no inguinal hernia expressed EXTREMITY: no cyanosis or erythema. 2+ dorsalis pedis, posterior tibial, and radial pulse. No pedal edema; no calf swelling or tenderness SKIN: no rash, warm and dry, no diaphoresis HEME: no purpura or ecchymosis NEURO: normal speech, CN II-XII intact, sensation intact, normal gait, no cerebellar deficits MS: 5/5 strength in all extremities, FROM intact in all extremities. Left shoulder no swelling or deformity full range of motion sensation intact throughout and equal FROM 2+ radial pulse ED Treatment Course - RADIOLOGY Radiology Studies Ordered: Category Date Time Status SHOULDER-LEFT [RAD] Stat Radiology 10/01/19 11:42 Ordered KIDNEY / RENAL US [US] Stat Ultrasound 10/01/19 12:06 Ordered Medical Decision Making - Medical Decision Making 10/01/19 12:12 49-year-old male left shoulder pain and hematuria Vital signs stable Will obtain left shoulder x-ray UA GC testing Will reassess based on results Patient's urine visibly has blood in it we will obtain ultrasound kidney Will reassess based on result X-ray negative for any acute fracture subluxation there may be some flattening of the lateral aspect humeral head which could indicate prior anterior dislocations Ultrasound shows tiny nonobstructing right and left renal stones.evidence of hydronephrosis no other lesions noted UA positive for blood without infection Pt voiding freely without obstruction Pt to follow up with urology and ortho without fail Pt appears well and is safe and stable for discharge with strict return precautions including signs and symptoms requring immediate return to the ED Supportive care instructions explained and given to pt. Reasons to return emergently to ER explained and given. Importance of follow up with PMD and other specialists as indicated stressed to pt. Pt verbalized understanding of instructions. Pt to follow up with PMD in 2 days. 10/01/19 14:12 Discharge - Discharge Information Problems reviewed: Yes Clinical Impression/Diagnosis: Hematuria Qualifiers: Hematuria type: unspecified type Qualified Code(s): R31.9 - Hematuria, unspecified Condition: Stable Disposition: HOME - Follow up/Referral Referrals: Preet Dupont [Primary Care Provider] - Dayo Eller MD [Staff Physician] - Branden Quigley MD [Staff Physician] - - Patient Discharge Instructions Patient Printed Discharge Instructions: DI for Hematuria - Post Discharge Activity
[2019-10-01 14:09] LABS: EPI CELLS 5 /uL (0-25.1); HYALINE CASTS 3 /uL (0-3.1); URINE APPEARANCE CLEAR; URINE BACTERIA 5 /uL (0-1359); URINE BILIRUBIN NEGATIVE (NEGATIVE); URINE COLOR DK YELLOW; URINE GLUCOSE (UA) NEGATIVE (NEGATIVE); URINE KETONE NEGATIVE (NEGATIVE); URINE LEUK ESTERASE TRACE (NEGATIVE); URINE NITRITE NEGATIVE (NEGATIVE); URINE PROTEIN NEGATIVE (NEGATIVE); URINE WBC 23 /uL (0-25.8)
[2019-10-01 18:07] LABS: URINE CRYSTALS MODERATE /hpf; URINE RBC 83.6 /uL (0-23.9)
== END 2019-10-01 14:13 | disposition home or self-care (01) ==
LOC: JERFT 11:24
DX: R31.9 Hematuria, unspecified (principal)
CPT/HCPCS: 36415; 73030-TC-LT-FY; 76775-TC; 81003; 87491; 87591; 99285-25

== ENCOUNTER 2021-10-25 12:58 | Emergency (ER) | payer OTHER ==
[2021-10-25 13:11] VITALS: BP 147/71; PULSE 78; RESP 18; TEMP 98.2; BMI 18.8
[2021-10-25] MEDS ORDERED: IBUPROFEN 600 MG TABLET (FP) PO ONE ×2 (15:32→15:38)
== END 2021-10-25 15:41 | disposition home or self-care (01) ==
LOC: JERFT 12:58
DX: S93.401A Sprain of unspecified ligament of right ankle, initial encounter (principal)
CPT/HCPCS: 73610-TC-RT-FY; 73630-TC-RT-FY; 99284-25